=== PATIENT | female | born 1950 | race Caucasian/White ===

== ENCOUNTER 2018-08-17 07:15 | Day surgery (SDC) | payer OTHER, MEDICARE ==
--- OUTSIDE RECORDS SUMMARY | 2018-08-17 07:20 | XMS REPORT | Continuity of Care Document ---
:1950 Author Organization Interface Problems Problem Status Onset Classification Date Comments Source Date Reported AFIB Active 04/21/20 [facility] 15 Bradycardia Active Problem 04/25/2015 [facility] Pacemaker Active Problem 04/25/2015 [facility] Paroxysmal Active Problem 04/25/2015 [facility] atrial fibrillation Syncope Active Problem 04/25/2015 [facility] ATRIAL Active [facility] FIBRILLATION Medications Medication Details Route Status Patient Ordering Order Source Instructions Provider Date BD Normal 10 mL, Route: Inactive Saline Flush IVP, Drug [facility] Form: INJ, PRN, PRN Line Flush, Start date: 04/22/15 14:36:00, Duration: 30 day, Stop date: 05/22/15 14:35:00Notes : (Same as: BD Posiflush) Sodium 250 mL, Inactive Chloride 0.9% Route: IVPB, 015 [facility] IV Start date: 04/22/15 14:36:00, Duration: 30 day, Stop date: 05/22/15 14:35:00, PRN Line Flush Vancomycin 1 gm, 200 mL, Inactive Route: IV, 015 [facility] Drug form: INJ, ONCE, Dosing Weight 52.727, kg, Start date: 04/22/15 13:58:00, Stop date: 04/22/15 13:58:00Notes : TIME CRITICAL MEDICATION Allergies, Adverse Reactions, Alerts Substance Category Reaction Severity Reaction Status Date Comments Source type Reported Codeine Assertion Drug Active Sulfate allergy [facility] morphine Assertion Drug Active allergy [facility] penicillins Assertion Drug Active allergy [facility] sulfa drugs Assertion Drug Active allergy [facility] Immunizations Immunization Date Given Site Status Last Updated Comments Source Results Order Name Results Value Reference Date Interpretation Comments Source Range CHEM PANEL eGFR 77 04/22 1Result Comment: The eGFR is calculated using the CKD-EPI formula. In most young, healthy individuals the eGFR will be >90 mL/ min/1.73m2. The eGFR declines with age. An eGFR of 60-89 may be normal in mL/min/ /2014 some populations, particularly the elderly, for whom the CKD-EPI formula has not been extensively validated. Use of the eGFR is not recommended in the following populations: [facility] 1.73m2 Individuals with unstable creatinine concentrations, including patients and those with serious co-morbid conditions. Patients with extremes in muscle mass or diet. The data above are obtained from the National Kidney Disease Education Program (NKDEP) which additionally recommends that when the eGFR is used in patients with extremes of body mass index for purposes of drug dosing, the eGFR should be multiplied by the estimated BMI. CHEM PANEL POC BUN 12 7 - 22 / MH mg/dL /2014 [facility] CHEM PANEL POC Carbon 28 24 - 32 04/22 MH Dioxide mEq/dL [facility] CHEM PANEL POC 3.7 3.5 - 5.1 04/22 Potassium meq/L [facility] CHEM PANEL POC Chloride 104 95 - 109 04/22 MH meq/L [facility] CHEM PANEL POC AGAP 15.0 10.0 - 20.0 04/22 MH meq/L [facility] CHEM PANEL POC Sodium 142 135 - 145 04/22 MH meq/L [facility] CHEM PANEL POC Ion Ca 1.26 1.05 - 1.25 04/22 MH mMol/L [facility] CHEM PANEL POC 42.0 % 36.0 - 48.0 04/22 Hematocrit [facility] CHEM PANEL POC 14.3 12.0 - 16.0 04/22 Hemoglobin g/dL [facility] CHEM PANEL POC Glucose 94 70 - 99 04/22 mg/dL [facility] CHEM PANEL POC 0.8 0.5 - 1.4 04/22 Creatinine mg/dL [facility] HEMATOLOGY POC PT 11.0 s 12.0 - 14.7 04/22 [facility] HEMATOLOGY POC INR 0.9 0.9 - 1.2 04/22 [facility] Vital Signs Vital Sign Value Date Comments Source BMI Calculated 19.95 04/22/2015 [facility] Weight 52.727 04/22/2015 [facility] Height 162.56 cm 04/22/2015 [facility] Systolic (mm Hg) 174 04/22/2015 [facility] Diastolic (mm Hg) 91 04/22/2015 [facility] Heart Rate 65 04/22/2015 [facility] Respitory Rate 18 04/22/2015 [facility] Encounters Location Location Encounter Encounter Reason Attending ADM DC Status Source Details Type Number For Provider Date Date Visit [facility] [id number] [facility] 04/22 04/23 [facility] /2014 [facility] Outpatient [id number] ROE 05/11 Active [facility] Outpatient [id number] [facility] 06/13 [facility] Shiv Procedures Procedure Code Date Perfomer Comments Source Pacemaker care [id number] [facility]
--- OUTSIDE RECORDS SUMMARY | 2018-08-17 07:21 | XMS REPORT ---
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
--- OUTSIDE RECORDS SUMMARY | 2018-08-17 07:21 | XMS REPORT ---
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
--- OUTSIDE RECORDS SUMMARY | 2018-08-17 07:21 | XMS REPORT ---
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
--- OUTSIDE RECORDS SUMMARY | 2018-08-17 07:21 | XMS REPORT ---
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
--- OUTSIDE RECORDS SUMMARY | 2018-08-17 07:21 | XMS REPORT ---
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
[2018-08-17] MEDS ORDERED: NA CHLORIDE 0.9% 500 ML ONE (07:24)
[2018-08-17] MEDS ORDERED: LIDOCAINE 1% MPF 30 ML VIAL ONE (08:46)
[2018-08-17] MEDS ORDERED: PROPOFOL 200 MG/20 ML VIAL IV ONE (08:46)
--- NOTE | 2018-08-17 09:25 | ENDO RPT ---
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 ESTIMATED BLOOD LOSS: None CONSENT: The patient understands the risks and benefits of the procedure and understands that these risks include, but are not limited to: sedation, allergic reaction, infection, perforation and/or bleeding. Alternative means of evaluation and treatment include, among others: physical exam, x-rays, and/or surgical intervention. The patient elects to proceed with this endoscopic procedure. DESCRIPTION OF PROCEDURE: During intra-op preparation period all mechanical medical equipment was checked for proper function. Hand hygiene and appropriate measures for infection prevention was taken. Procedure, possible complications, alternatives including, but not limited to possibility of bleeding, perforation, tear, infection, sepsis, need for surgery, need for blood transfusion, were explained to the patient. After the risks, benefits and alternatives of the procedure were thoroughly explained, Informed consent was verified, confirmed and timeout was successfully executed by the treatment team. The patient was placed in the left lateral position. A digital rectal exam was performed and revealed internal hemorrhoids. After appropriate level of anesthesia, the scope was passed. The EC-[id number] ([id number]) endoscope was introduced through the anus and advanced to the cecum, which was identified by both the appendix and ileocecal valve. The quality of the prep was fair. The instrument was then slowly withdrawn as the colon was fully examined. Scope withdrawal time was 10 minutes. COLON FINDINGS: A small smooth sessile polyp with a friable surface was found in the rectum. A polypectomy was performed with cold forceps. The resection was complete, the polyp tissue was completely retrieved and sent to histology. A medium sized diffuse patch of abnormal mucosa was found in the right colon. The mucosa was erythematous. A biopsy of the area was performed using cold forceps. Retroflexed views revealed no abnormalities. The scope was then completely withdrawn from the patient and the procedure terminated. ADVERSE EVENTS: There were no complications. IMPRESSIONS: 1. Small sessile polyp was found in the rectum; polypectomy was performed with cold forceps 2. Medium sized diffuse abnormal mucosa was found in the right colon; The mucosa was erythematous; biopsy of the area was performed using cold forceps 3. Internal hemorrhoids RECOMMENDATIONS: 1. avoid NSAIDS for 2 weeks 2. await biopsy results 3. fiber rich diet 4. follow-up: office 2 week(s) 5. yearly hemoccult starting in 4 years RECALL: Return in 5 year(s) for Colonoscopy, pending biopsy results. Rom Casas DR eSigned: Rom Casas DR 08/17/2018 9:24 AM cc: CPT CODES: ICD9 CODES: PATIENT NAME: Ally Nelson MR#: [id number]
== END 2018-08-17 10:00 | disposition home or self-care (01) ==
LOC: OR 07:15
PROVIDERS: ATTEND Surgery
PROC: 0DBP8ZX Excision of Rectum, Via Natural or Artificial Opening Endoscopic, Diagnostic (ICD-10-PCS; 2018-08-17)
PROC: 0DBF8ZX Excision of Right Large Intestine, Via Natural or Artificial Opening Endoscopic, Diagnostic (ICD-10-PCS; principal; 2018-08-17 08:30)
DX: Z12.11 Encounter for screening for malignant neoplasm of colon (principal); K62.1 Rectal polyp; K64.8 Other hemorrhoids; I48.91 Unspecified atrial fibrillation; Z95.0 Presence of cardiac pacemaker; Z88.0 Allergy status to penicillin; Z88.2 Allergy status to sulfonamides; Z88.6 Allergy status to analgesic agent; Z87.891 Personal history of nicotine dependence; Z82.3 Family history of stroke; Z83.3 Family history of diabetes mellitus; Z82.49 Family history of ischemic heart disease and other diseases of the circulatory system
CPT/HCPCS: 88305; J2704

== ENCOUNTER 2019-10-18 09:37 | Emergency (ER) | payer OTHER, MEDICARE ==
--- OUTSIDE RECORDS SUMMARY | 2019-10-18 09:40 | XMS REPORT ---
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 [id number] 45 MCG/ACT Active 1 puff as Tartrate Inhalation every needed 4 hrs Results No Known Results Summary Purpose [employer]Clinical[employer] Pieces Submission
[2019-10-18 10:49] LABS: Absolute Lymphocytes (CBC) 1.7 K/uL (0.7-4.9); Basophils % 0.3 % (0-1.3); Hematocrit 39.9 % (36.0-45.0); Lymphocytes % 24.1 % (15.3-44.8); MPV 7.9 fL (7.6-11.3); RBC Red Blood Cell Count 4.04 M/uL (3.86-4.86)
[2019-10-18 11:08] LABS: Albumin 4.1 g/dL (3.4-5.0); Bilirubin Direct 0.2 mg/dL (0-0.2); Bilirubin Total 0.7 mg/dL (0.2-1.0); Potassium 3.8 mmol/L (3.5-5.1); Protein, Total 7.5 g/dL (6.4-8.2)
[2019-10-18 11:29] LABS: Urine Blood NEGATIVE (NEG); Urine Glucose NEGATIVE (NEG); Urine Protein NEGATIVE (NEG)
--- NOTE | 2019-10-18 12:14 | RAD REPORT ---
EXAM DESCRIPTION: CT - Abdomen Pelvis W Contrast - 10/18/2019 11:36 am CLINICAL HISTORY: Abdominal pain COMPARISON: none. TECHNIQUE: Computed axial tomography of the abdomen pelvis was obtained. 100 cc Isovue-300 was admin istered intravenously. Oral contrast was not requested which limits evaluation of bowel. All CT scans are performed using dose optimization technique as appropriate and may include automated exposure control or mA/KV adjustment according to patient size. FINDINGS: The liver, spleen, pancreas, adrenal and kidneys appear unremarkable. There is no evidence of diverticulitis. No ascites IMPRESSION: No acute abnormality is displayed.
--- NOTE | 2019-10-18 13:04 | EDPHYS ---
Physician Documentation [facility] Name: Ally Nelson Age: 69 yrs Sex: Female : 1950 Arrival Date: 10/18/2019 Time: 09:40 Bed 14 Private MD: ED Physician Steve Najera HPI: 10/18 10:29 This 69 yrs old Female presents to ER via Ambulatory with complaints of Back rn Injury. 10:29 The patient presents with pain that is acute. The symptoms are located in the low back. rn 10:29 Onset: The symptoms/episode began/occurred 10 day(s) ago. The pain does not radiate. rn Associated signs and symptoms: Pertinent positives: none Pertinent negatives: abdominal pain, fever, incontinence, nausea, numbness, tingling, urinary retention, vomiting, weakness. Modifying factors: The patient symptoms are alleviated by nothing, the patient symptoms are aggravated by any movement. Severity of symptoms: At their worst the symptoms were moderate, in the emergency department the symptoms are unchanged. The patient has not experienced similar symptoms in the past. Reports fell from approx 3 foot height, back onto storage bin, hit back directly, + mid back pain and right pelvic pain. Able to use bathroom, no hematuria. No blood thinners. . Historical: - Allergies: 09:57 PENICILLINS; iw 09:57 Codeine; iw 09:57 Morphine; iw 09:57 Sulfa (Sulfonamide Antibiotics); iw - Home Meds: 09:57 None [Active]; iw - PMHx: 09:57 Pacemaker; syncope; dystonic tremor; iw - PSHx: 09:57 Hysterectomy; iw - Immunization history: Last tetanus immunization: unknown. - Social history:: Smoking status: Patient/guardian denies using tobacco. - Ebola Screening: : Patient negative for fever greater than or equal to 101.5 degrees Fahrenheit, and additional compatible Ebola Virus Disease symptoms Patient denies exposure to infectious person Patient denies travel to an Ebola-affected area in the 21 days before illness onset No symptoms or risks identified at this time. - Family history:: not pertinent. - Hospitalizations: : No recent hospitalization is reported. ROS: 10:29 Constitutional: Negative for fever, chills, and weight loss, Eyes: Negative for injury, rn pain, redness, and discharge, Neck: Negative for injury, pain, and swelling, Cardiovascular: Negative for chest pain, palpitations, and edema, Respiratory: Negative for shortness of breath, cough, wheezing, and pleuritic chest pain, Abdomen/GI: Negative for abdominal pain, nausea, vomiting, diarrhea, and constipation, Back: + mid and low back pain : Negative for injury, bleeding, discharge, and swelling, MS/Extremity: Negative for injury and deformity, Neuro: Negative for headache, weakness, numbness, tingling, and seizure. Exam: 10:29 Constitutional: This is a well developed, well nourished patient who is awake, alert, rn and in no acute distress. Slow but able to ambulate to room without assistance. Head/Face: Normocephalic, atraumatic. Cardiovascular: Regular rate and rhythm. No pulse deficits. Respiratory: Lungs have equal breath sounds bilaterally, clear to auscultation. No increased work of breathing, no retractions or nasal flaring. Abdomen/GI: soft, non-tender Back: + mid/lower lumbar spinal tenderness with ecchymosis near sacrum. MS/ Extremity: Pulses equal, no cyanosis. Neurovascular intact. Full, normal range of motion. Equal circumference. Neuro: Awake and alert, GCS 15, oriented to person, place, time, and situation. Cranial nerves II-XII grossly intact. Motor strength 5/5 in all extremities. Sensory grossly intact. Cerebellar exam normal. Normal gait. Vital Signs: 09:51 BP 157 / 77; Pulse 64; Resp 16; Temp 98.2; Pulse Ox 100% on R/A; Weight 50.8 kg; Height iw 5 ft. 4 in. (162.56 cm); Pain 8/10; 11:46 BP 161 / 72; Pulse 65; Resp 17 S; Pulse Ox 100% on R/A; ca1 12:53 BP 124 / 68; Pulse 62; Resp 16; Temp 98.0(O); Pulse Ox 100% on R/A; mh5 09:51 Body Mass Index 19.22 (50.80 kg, 162.56 cm) iw MDM: 10:06 Patient medically screened. rn 12:53 Differential diagnosis: vertebral fracture, contusion, pelvic contusion, rn retroperitoneal hematoma. Data reviewed: vital signs, nurses notes, radiologic studies, CT scan, and as a result, I will discharge patient. Counseling: I had a detailed discussion with the patient and/or guardian regarding: the historical points, exam findings, and any diagnostic results supporting the discharge/admit diagnosis, lab results, radiology results, the need for outpatient follow up, to return to the emergency department if symptoms worsen or persist or if there are any questions or concerns that arise at home. Special discussion: I discussed with the patient/guardian in detail that at this point there is no indication for admission to the hospital. It is understood, however, that if the symptoms persist or worsen the patient needs to return immediately for re-evaluation. ED course: No acute findings on CT scan of abdomen/pelvis, will dc home with trial of muscle relaxer. . 10/18 10:20 Order name: CBC with Diff; Complete Time: 11:36 rn 10/18 10:20 Order name: Basic Metabolic Panel; Complete Time: 11:36 rn 10/18 10:20 Order name: CT Abd/Pelvis - IV Contrast Only; Complete Time: 12:26 rn 10/18 10:20 Order name: LFT's; Complete Time: 11:36 rn 10/18 10:20 Order name: Lipase; Complete Time: 11:36 rn 10/18 10:45 Order name: Urine Dipstick--Ancillary (enter results); Complete Time: 11:36 eb 10/18 10:20 Order name: IV Start; Complete Time: 10:43 rn 10/18 10:20 Order name: Urine Dipstick-Ancillary (obtain specimen); Complete Time: 10:43 rn Administered Medications: No medications were administered Disposition: 10/18/19 13:01 Discharged to Home. Impression: Contusion of lower back and pelvis. - Condition is Stable. - Discharge Instructions: Contusion. - Prescriptions for Cyclobenzaprine 5 mg Oral Tablet - take 1 tablet by ORAL route 3 times per day As needed; 15 tablet. - Medication Reconciliation Form, Thank You Letter, Antibiotic Education, Prescription Opioid Use form. - Follow up: Private Physician; When: As needed; Reason: Recheck today's complaints, Re-evaluation by your physician. - Problem is new. - Symptoms have improved. Signatures: Dispatcher [employer] Melba Morgan RN RN iw Nieto, Roman, MD MD rn Acob, ADALBERTO Diego RN ca1 Corrections: (The following items were deleted from the chart) 13:01 12:53 ED course: No acute findings on CT scan of abdomen/pelvis, will dc home with rn trial of muscle relaxer. . rn 13:11 13:01 10/18/2019 13:01 Discharged to Home. Impression: Contusion of lower back and ca1 pelvis. Condition is Stable. Forms are Medication Reconciliation Form, Thank You Letter, Antibiotic Education, Prescription Opioid Use. Follow up: Private Physician; When: As needed; Reason: Recheck today's complaints, Re-evaluation by your physician. Problem is new. Symptoms have improved. rn
--- NOTE | 2019-10-18 13:04 | ER ---
Nurse's Notes [facility] Name: Ally Nelson Age: 69 yrs Sex: Female : 1950 Arrival Date: 10/18/2019 Time: 09:40 Bed 14 Private MD: Diagnosis: Contusion of lower back and pelvis Presentation: 10/18 09:51 Presenting complaint: Patient states: fell 10 days ago, was going up a very tall bunk iw bed approx 3-4 feet, fell straight to back, fell onto plastic storage bins, now feels a bulge on back, also having mid pain and is having a hard time having a BM, also noticed that her right leg feels like it doesn't want to go to the floor, gets better during day. Care prior to arrival: None. Mechanism of Injury: Fall bunk bed steps. Trauma event details: Injury occurred in the [facility], Injury occurred:. 09:51 Acuity: JERSON 3 iw 09:51 Method Of Arrival: Ambulatory iw 09:57 Transition of care: patient was not received from another setting of care. Onset of iw symptoms was October 08, 2019. Risk Assessment: Do you want to hurt yourself or someone else? Patient reports no desire to harm self or others. Initial Sepsis Screen: Does the patient meet any 2 criteria? No. Patient's initial sepsis screen is negative. Does the patient have a suspected source of infection? No. Patient's initial sepsis screen is negative. Trauma Activation: Not Applicable Physician: ED Physician; Name: ; Notified At: ; Arrived At: Physician: General Surgeon; Name: ; Notified At: ; Arrived At: Physician: Radiology; Name: ; Notified At: ; Arrived At: Physician: Respiratory; Name: ; Notified At: ; Arrived At: Physician: Lab; Name: ; Notified At: ; Arrived At: Historical: - Allergies: 09:57 PENICILLINS; iw 09:57 Codeine; iw 09:57 Morphine; iw 09:57 Sulfa (Sulfonamide Antibiotics); iw - Home Meds: 09:57 None [Active]; iw - PMHx: 09:57 Pacemaker; syncope; dystonic tremor; iw - PSHx: 09:57 Hysterectomy; iw - Immunization history: Last tetanus immunization: unknown. - Social history:: Smoking status: Patient/guardian denies using tobacco. - Ebola Screening: : Patient negative for fever greater than or equal to 101.5 degrees Fahrenheit, and additional compatible Ebola Virus Disease symptoms Patient denies exposure to infectious person Patient denies travel to an Ebola-affected area in the 21 days before illness onset No symptoms or risks identified at this time. - Family history:: not pertinent. - Hospitalizations: : No recent hospitalization is reported. Screenin:12 Abuse screen: Denies threats or abuse. Denies injuries from another. Nutritional ca1 screening: No deficits noted. Tuberculosis screening: No symptoms or risk factors identified. Fall Risk Fall in past 12 months (25 points). Assessment: 10:12 General: Appears in no apparent distress. comfortable, Behavior is calm, cooperative, ca1 appropriate for age. Neuro: Level of Consciousness is awake, alert, obeys commands, Oriented to person, place, time, situation, Appropriate for age. Cardiovascular: Heart tones S1 S2 present Capillary refill < 3 seconds Patient's skin is warm and dry. Respiratory: Airway is patent Respiratory effort is even, unlabored, Respiratory pattern is regular, symmetrical, Breath sounds are clear bilaterally. GI: Abdomen is flat, non-distended, Bowel sounds present X 4 quads. Abd is soft and non tender X 4 quads. : No deficits noted. No signs and/or symptoms were reported regarding the genitourinary system. EENT: No deficits noted. No signs and/or symptoms were reported regarding the EENT system. Derm: Skin is intact, is healthy with good turgor, Skin is pink, warm \T\ dry. Musculoskeletal: Circulation, motion, and sensation intact. Capillary refill < 3 seconds, Range of motion: intact in all extremities. 10:14 Pain: Complains of pain in low back area and mid back area Pain currently is 8 out of ca1 10 on a pain scale. 11:27 Reassessment: Patient appears in no apparent distress at this time. Patient is alert, ca1 oriented x 3, equal unlabored respirations, skin warm/dry/pink. 12:36 Reassessment: Patient appears in no apparent distress at this time. Patient and/or ca1 family updated on plan of care and expected duration. Pain level reassessed. Vital Signs: 09:51 BP 157 / 77; Pulse 64; Resp 16; Temp 98.2; Pulse Ox 100% on R/A; Weight 50.8 kg; Height 5 ft. 4 in. (162.56 cm); Pain 8/10; 11:46 BP 161 / 72; Pulse 65; Resp 17 S; Pulse Ox 100% on R/A; ca1 12:53 BP 124 / 68; Pulse 62; Resp 16; Temp 98.0(O); Pulse Ox 100% on R/A; mh5 09:51 Body Mass Index 19.22 (50.80 kg, 162.56 cm) ED Course: 09:40 Patient arrived in ED. mr 09:55 Triage completed. iw 09:57 Arm band placed on. iw 10:06 Steve Najera MD is Attending Physician. rn 10:08 Brandie Paul, ADALBERTO is Primary Nurse. ca1 10:12 Patient has correct armband on for positive identification. Bed in low position. Call ca1 light in reach. Side rails up X 1. Pulse ox on. NIBP on. Warm blanket given. 10:12 No provider procedures requiring assistance completed. ca1 10:35 Initial lab(s) drawn, by me, sent to lab. Urine collected: clean catch specimen, clear, ca1 Amount Voided: 60mL. Inserted saline lock: 22 gauge in right antecubital area, using aseptic technique. Blood collected. 11:39 CT Abd/Pelvis - IV Contrast Only In Process Unspecified. EDMS 13:11 IV discontinued, intact, bleeding controlled, No redness/swelling at site. Pressure ca1 dressing applied. Administered Medications: No medications were administered Outcome: 13:01 Discharge ordered by . rn 13:11 Discharged to home ambulatory, with significant other. ca1 13:11 Condition: stable 13:11 Discharge instructions given to patient, Instructed on discharge instructions, follow up and referral plans. medication usage, Demonstrated understanding of instructions, follow-up care, medications, Prescriptions given X 1. 13:11 Patient left the ED. ca1 Signatures: Dispatcher [employer] EDAK JulioLizbeth sanchez Melba Perez, ADALBERTO GLOVER Steve Najera MD MD rn Martinez, [facility] Brandie Paul RN RN kaykay Corrections: (The following items were deleted from the chart) 09:55 09:51 Trauma event details: Injury occurred in the [facility], Injury occurred: iw 10:43 10:12 Patient did not have IV access during this emergency room visit. ca1 ca1
[2019-10-18 13:19] VITALS: O2SAT 100
[2019-10-18 13:22] VITALS: BP 124/68; TEMP 98
== END 2019-10-18 13:11 | disposition home or self-care (01) ==
LOC: ER 09:37
DX: S30.0XXA Contusion of lower back and pelvis, initial encounter (principal); W06.XXXA Fall from bed, initial encounter; Y93.9 Activity, unspecified; Y92.9 Unspecified place or not applicable; Z88.0 Allergy status to penicillin; Z88.6 Allergy status to analgesic agent; Z88.2 Allergy status to sulfonamides; Z95.0 Presence of cardiac pacemaker
CPT/HCPCS: 85025; 80048; 36415; 80076; 81003; 83690; 74177; 99284; Q9967

== ENCOUNTER 2020-07-30 10:31 | Day surgery (SDC) | payer OTHER, MEDICARE ==
[2020-07-27 12:27] LABS: Absolute Lymphocytes (CBC) 1.8 K/uL (0.7-4.9); Basophils % 0.3 % (0-1.3); Hematocrit 40.4 % (36.0-45.0); Lymphocytes % 26.9 % (15.3-44.8); RBC Red Blood Cell Count 4.01 M/uL (3.86-4.86)
[2020-07-27 12:32] LABS: Protime INR 0.95
[2020-07-27 12:42] LABS: Potassium 3.6 mmol/L (3.5-5.1)
--- NOTE | 2020-07-27 12:57 | RAD REPORT ---
EXAM DESCRIPTION: RAD - Chest Pa And Lat (2 Views) - 07/27/2020 12:34 pm CLINICAL HISTORY: pre op, pending cardiac catheterization COMPARISON: July 2017 TECHNIQUE: Frontal and lateral views of the chest were obtained. FINDINGS: The lungs are clear. Interstitial pattern matches comparison. Left-sided pacemaker remain s in place. Heart size is normal and central vasculature is within normal limits. No pleural effusio n or pneumothorax seen. No acute bony finding noted. No aortic abnormality. IMPRESSION: No acute cardiopulmonary process. No significant change from comparison.
[2020-07-30] MEDS ORDERED: NA CHLORIDE 0.9% 500 ML ONE (11:04)
[2020-07-30] MEDS ORDERED: MIDAZOLAM HCL 2 MG/2 ML INJ ONE (13:01)
[2020-07-30] MEDS ORDERED: FENTANYL CITR 100 MCG/2 ML ONE (13:02)
[2020-07-30] MEDS ORDERED: HEPARIN 5000 UNIT/ML 1 ML VIAL ONE (13:11)
[2020-07-30] MEDS ORDERED: NITROGLYCERIN/D5W 25 MG/250 ML BTL IV ONE (13:12)
[2020-07-30] MEDS ORDERED: NICARDIPINE HCL 25 MG/10 ML IV ONE (13:12)
[2020-07-30] MEDS ORDERED: HEPARIN 10,000 UNIT/10 ML VIAL IV ONE (13:12)
[2020-07-30] MEDS ORDERED: NITROGLYCERIN 100 MCG/ML SYR (for cath lab use only) IV ONE (13:12)
[2020-07-30] MEDS ORDERED: HEPA 1000U/500MLS 1,000 UNIT/500 ML BAG IV ONE (14:05)
[2020-07-30 14:18] VITALS: TEMP 97.1
[2020-07-30 16:26] VITALS: BP 132/58; O2SAT 98
--- NOTE | 2020-07-30 23:43 | OP ---
Date of Procedure: 07/30/2020 Surgeon: SHIELA BORRERO Procedure Performed: Selective coronary angiogram. Indication: Unstable angina. Access: Right radial artery is closed with TR band. Complications: None. Bleeding: Less than 5 mL. Anesthesia: Total sedation time was 15. The description of procedure after risks, benefits, alterna tives were explained to patient and. Description Of Procedure: After risks, benefits, and alternatives were explained to the patient, the patient agreed to proceed and signed informed consent. The patient was brought into the cardiac cat heterization laboratory, prepped and draped in usual sterile fashion. We used fentanyl and Versed in incremental doses to achieve adequate moderate sedation throughout the procedure. Then, we used the pediatric micropuncture kit to access right radial artery and placed a 6-Bengali slender sheath. The n, we took a 5-Bengali [place] catheter into the aortic root over the J-wire, engaged left main coronary artery and the right coronary artery. We took standard views. Then removed the catheter and the wi res with the sheath and placed TR band for hemostasis. Findings: 1.Left main is normal. 2.LAD, large and normal. 3.Left circumflex is a moderate-sized and normal. 4.RCA: Small to moderate size, normal and this is codominant circulation. Conclusion: Normal coronary arteries. Plan: 1.Medical management. 2.Discharge home once discharge criteria are met. /VIC Voice ID: [id number] Report ID: [id number]
--- OUTSIDE RECORDS SUMMARY | 2020-08-05 15:56 | XMS REPORT | Continuity of Care Document ---
:1950 Author Organization [employer] Care Team Providers Name Role Phone [employer] Unavailable Un available Problems Problem Status Onset Classification Date Comments Sourc e Date Reported AFIB Active 04/21/[address] [facility] [address] 15 Bradycardia Active Problem 04/25/2015 [facility] (disorder) Cardiac Active Problem 04/25/2015 [facility] est pacemaker in situ (finding) Paroxysmal Active Problem 04/25/2015 [facility] atrial fibrillation (disorder) Syncope Active Problem 04/25/2015 [facility] est (disorder) ATRIAL Active [facility] st FIBRILLATION Medications Medication Details Route Status Patient Ordering Order Source Instructions Provider Date BD Normal Notes: (Same Inactive Saline Flush as: BD [address] [place] [address] Posiflush) Sodium 250 mL, Inactive Chloride 0.9% Route: IVPB, [address] [place] [address] IV Start date: 04/22/15 14:36:00, Duration: 30 day, Stop date: 05/22/15 14:35:00, PRN Line Flush Vancomycin Notes: TIME Inactive CRITICAL [address] [place] [address] MEDICATION Allergies, Adverse Reactions, Alerts Substance Category Reaction Severity Reaction Status Date Comments S ource type Reported Codeine Assertion Drug Active Sulfate allergy [facility] morphine Assertion Drug Active allergy [facility] t penicillins Assertion Drug Active allergy [facility] t sulfa drugs Assertion Drug Active allergy [facility] t Immunizations No Data Provided for This Section Results Order Name Results Value Reference Date Interpretation Comments Tsering rce Range CHEM PANEL eGFR 77 04/22 <sup>1</sup>R ult [facility] Comment: The eGFR is calculated using the CKD-EPI formula. In most young, healthy individuals the eGFR will be >90 mL/min/1.73m2 . The eGFR declines with age. An eGFR of 60-89 may be normal in some populations, particularly the elderly, for whom the CKD-EPI formula has not been extensively validated. Use of the eGFR is not recommended in the following populations:& lt;br/>
I ndividuals with unstable creatinine concentration s, including patients and those with serious co-morbid conditions.<b r/>
Patie nts with extremes in muscle mass or diet.

The data above are obtained from the National Kidney Disease Education Program (NKDEP) which additionally recommends that when the eGFR is used in patients with extremes of body mass index for purposes of drug dosing, the eGFR should be multiplied by the estimated BMI. CHEM PANEL POC BUN 12 7 - 22 04/22 [facility] CHEM PANEL POC Carbon 28 24 - 32 04/22 Dioxide [facility] CHEM PANEL POC 3.7 3.5 - 5.1 04/22 Potassium [facility] CHEM PANEL POC Chloride 104 95 - 109 04/22 [facility] CHEM PANEL POC AGAP 15.0 10.0 - 20.0 04/22 [facility] CHEM PANEL POC Sodium 142 135 - 145 04/22 [facility] CHEM PANEL POC Ion Ca 1.26 1.05 - 1.25 04/22 [facility] CHEM PANEL POC 42.0 36.0 - 48.0 04/22 Hematocrit [facility] CHEM PANEL POC 14.3 12.0 - 16.0 04/22 Hemoglobin [facility] CHEM PANEL POC Glucose 94 70 - 99 04/22 [facility] CHEM PANEL POC 0.8 0.5 - 1.4 04/22 Creatinine [facility] HEMATOLOGY POC PT 11.0 12.0 - 14.7 04/22 [facility] HEMATOLOGY POC INR 0.9 0.9 - 1.2 04/22 [facility] Pathology Reports No Data Provided for This Section Diagnostic Reports No Data Provided for This Section Consultation Notes No Data Provided for This Section Discharge Summaries No Data Provided for This Section History and Physicals No Data Provided for This Section Vital Signs Vital Sign Value Date Comments Source BMI Calculated 19.95 04/22/2015 [facility] Weight 52.727 04/22/2015 [facility] Height 162.56 cm 04/22/2015 [facility] Systolic (mm Hg) 174 04/22/2015 [facility] t Diastolic (mm Hg) 91 04/22/2015 [facility] Heart Rate 65 04/22/2015 [facility] Respitory Rate 18 04/22/2015 [facility] Encounters Location Location Encounter Encounter Reason Attending ADM DC Stat us Source Details Type Number For Provider Date Date Visit [facility] [id number] Santos 04/22 04/23 Shiv Outpatient Jalal /2014 [facility] Outpatient [id number] ROE 05/[address] [facility] Imogene Outpatient [id number] ROE 06/13 Active [facility] Imogene Procedures Procedure Code Date Perfomer Comments Source Pacemaker care [id number] [facility] Assessment and Plan No Data Provided for This Section Plan of Care No Data Provided for This Section Social History Social History Date Source Social History TypeResponse 04/22/2015 [facility] Substance Abuse Use: None. Sexual Sexually active: Yes. Partner with STD? No. Uses condoms: No. History of sexual abuse: No. Sex Mutually Satisfying: Yes. Employment/School 1 Alcohol Past, Drinks more than intended: No. Ot hers hurt by drinking: No. Ready to change: No. Household alcohol concerns: No. Smoking Status Unknown if ever smoked; Exposure to [employer] Smoke None; Cigarette Smoking Last 365 Days No; Reg Smoking Cessation Counseling No 1pt is retired Family History No Data Provided for This Section Advance Directives No Data Provided for This Section Functional Status No Data Provided for This Section
--- OUTSIDE RECORDS SUMMARY | 2020-08-05 15:57 | XMS REPORT | Continuity of Care Document ---
:1950 Author Organization [facility] t Address [address] [place] [address] Care Team Providers Name Role Phone Femi Attending Clinician Problems Condition Condition Condition Status Onset Resolution Last Treating Co mments Source Name Details Category Date Date Treatment Clinician Date AFIB Diagnosis Active 2015-04-23 Mem oria 04-21 08:42:00 l AFIB 00:00: Shiv 00 Active 04/21/2015 [facility] Encounter Encounter Problem [facility] general Memoria adult adult l medical medical Outpati examinatio examinatio en t n without n without Clin ics abnormal abnormal findings findings Intention Intention Diagnosis Active [facility] tremor tremor [facility] PAC PAC Problem Active [facility] (premature (premature [place] [facility] - atrial atrial Memoria contractio contractio l n) n) Outpati ent Clinics Bronchiect Bronchiect Problem Active [facility] asis asis [facility] without without Memoria complicati complicati l on on Outpati ent Clinics Gastroesop Gastroesop Problem Active [facility] hageal hageal [facility] - reflux reflux Memoria disease disease l without without Outpati esophagiti esophagiti en t s s Clinics Cafe au Cafe au Diagnosis Active [facility] lait spots lait spots [place] [facility]ics White coat White coat Diagnosis Active [facility] syndrome syndrome [facility] without without Memoria hypertensi hypertensi l on on Outpati ent Clinics Bradycardi Problem Active 2015-04-25 M emoria a 02:20:55 l (disorder) Josue keita Bradycardi a (disorder) Active Problem 04/25/2015 [facility] Cardiac Problem Active 2015-04-25 Fan ras pacemaker 02:20:55 l in situ Cardiac Josue n (finding) pacemaker in situ (finding) Active Problem 04/25/2015 [facility] Paroxysmal Problem Active 2015-04-25 M emoria atrial 02:20:55 l fibrillati Josue n on Paroxysmal (disorder) atrial fibrillati on (disorder) Active Problem 04/25/2015 [facility] Syncope Problem Active 2015-04-25 Fan ras (disorder) 02:20:55 l Syncope [place] (disorder) Active Problem 04/25/2015 [facility] ATRIAL Diagnosis Active 2015-04-23 Mem oria FIBRILLATI 08:42:00 l ON ATRIAL Shiv FIBRILLATI ON Active [facility] Allergies, Adverse Reactions, Alerts Allergy Allergy Status Severity Reaction(s) Onset Inactive Treating Comm ents Source Name Type Date Date Clinician Sulfa Adverse Active swelling and [facility] PCN Adverse Active swelling and [facility] MORPHINE Adverse Active hallucinatio C [facility] Reaction ns [facility] Codeine Codeine Active Memoria Sulfate Sulfate l Shiv morphine morphine Active Memori a l [place] penicill penicill Active Memori a ins ins l Shiv sulfa sulfa Active Memoria drugs drugs l [place] Social History Social Habit Start Date Stop Date Quantity Comments Source Social History 2015-04-22 2015-04-22 [facility] Peter green 13:11:43 13:11:43 Medications Ordered Filled Start Stop Current Ordering Indication Dosage Frequency Signature Comments Components Source Medication Medication Date Date Medication? Clinician (SIG) Name Name BD Normal No Notes: Memori a Saline 04-22 (Same as: l Flush 19:36: BD Posiflush) Sodium No 250 mL, Memoria Chloride 04-22 Route: l 0.9% IV 19:36: IVPB, Start date: 04/22/15 14:36:00, Duration: 30 day, Stop date: 05/22/15 14:35:00, PRN Line Flush Vancomycin Yes Notes: Memor ia 04-22 TIME l 18:58: CRITICAL MEDICATION Levalbutero Levalbutero Yes Andrez [address] [facility] Tartrate l Tartrate Анна needed [facility] Vital Signs Vital Name Observation Time Observation Value Comments Source BMI Calculated 2015-04-22 13:16:00 Peg al Shiv Weight 2015-04-22 13:16:00 Carol Fregosoann Height 2015-04-22 13:16:00 162.56 cm Carol Fregosoann Systolic (mm Hg) 2015-04-22 12:52:00 Fan Chaney Diastolic (mm Hg) 2015-04-22 12:52:00 Mem orial Shiv Heart Rate 2015-04-22 12:52:00 [facility] Shiv Respitory Rate 2015-04-22 12:52:00 Greggori al Shiv Procedures Procedure Date / Time Performed Performing Clinician Sour e Pacemaker care [facility] Shiv Encounters Start End Encounter Admission Attending Care Care Encounter Source Date/Time Date/Time Type Type Clinicians Facility Department ID 2019-07-04 2019-07-04 [facility] [id number] [facility] 13:00:00 13:00:00 [facility] Outpati ent Clinics 2019-02-28 2019-02-28 [facility] [id number] 13:00:00 13:00:00 [facility] Medicine Outpati ent Clinics 2018-06-26 2018-06-26 [facility] [id number] 13:30:00 13:30:00 t Specialty/U [place] [facility] - Specialty rology [facility] a /Urology Clinic l Clinic Outpati ent Clinics 2018-05-31 2018-05-31 [facility] [id number] 13:00:00 13:00:00 [facility] Medicine Medicine Outpati ent Clinics 2018-05-08 2018-05-08 [facility] [id number] 09[facility]43:00 09:43:00 [facility] Medicine Outpati ent Clinics 2018-04-18 2018-04-18 [facility] [id number] 10:09:00 10:09:00 [facility] Medicine Outpati ent Clinics 2018-04-17 2018-04-17 [facility] [id number] 15:00:00 15:00:00 t [facility] Medicine Medicine Outpati ent Clinics 2015-04-22 2015-04-22 Outpatient LETA Kahn [id number] 06:46:00 19:45:00 Santos 00 Results Test Description Test Time Test Comments Results Result Comments Source CHEM PANEL 2015-04-22 77 [facility] 12:33:00 CHEM PANEL 2015-04-22 12 [facility] 12:33:00 CHEM PANEL 2015-04-22 28 [facility] 12:33:00 CHEM PANEL 2015-04-22 3.7 [facility] 12:33:00 CHEM PANEL 2015-04-22 104 [facility] 12:33:00 CHEM PANEL 2015-04-22 15.0 [facility] 12:33:00 CHEM PANEL 2015-04-22 142 [facility] 12:33:00 CHEM PANEL 2015-04-22 1.26 [facility] 12:33:00 CHEM PANEL 2015-04-22 42.0 [facility] 12:33:00 CHEM PANEL 2015-04-22 14.3 [facility] 12:33:00 CHEM PANEL 2015-04-22 94 [facility] 12:33:00 CHEM PANEL 2015-04-22 0.8 [facility] 12:33:00 HEMATOLOGY 2015-04-22 12:26:00 Test Item Value Reference Range Interpretation Comme nts POC PT (test code = POC PT) 11.0 s 12.0-14.7 [facility] [id number] 12:26:000.9[facility] Shiv
== END 2020-07-30 15:40 | disposition home or self-care (01) ==
LOC: CCL 10:31
PROVIDERS: ATTEND Internal Medicine
DX: R07.89 Other chest pain (principal); R94.39 Abnormal result of other cardiovascular function study; R09.89 Other specified symptoms and signs involving the circulatory and respiratory systems; Z20.828 Contact with and (suspected) exposure to other viral communicable diseases; Z88.6 Allergy status to analgesic agent; Z88.0 Allergy status to penicillin; Z88.2 Allergy status to sulfonamides; Z95.0 Presence of cardiac pacemaker
CPT/HCPCS: 93454 ×2; 85025; 80048; 36415; 85610; 85730; 71046; U0002; C1893; J1644 ×2; J2250; J3010; J7040